=== PATIENT | female | born 1955 | race Caucasian/White ===

== ENCOUNTER → 2017-01-10 | Outpatient (CLI) | payer BC ==
[~2017-01-10] MED LIST: BUTATAB6 PO; CETI10 PO; COLA100C3 PO; CYCL1TAB29 PO; DICL1GEL7 TOPICAL; ESTR.625 PO; FOLI1TAB4 PO; FOLI400T PO; INSU100V2 SQ; LANTINJ SQ; LYRI100C PO; LYRI200C PO; MECL-62 PO; METH2.5T PO; MIRA33504 PO; NORC5TAB PO; NOVONP2 SQ; ONDA1TAB17 PO; OXYC15TA PO; OXYC20TA17 PO; PILO5TAB3 PO; RANI150T PO; SIMV20TA PO; TIZA4CAP3 PO; TRAM50TA PO; VENTAER INH; WALKER WHEELS/F1 MIS
== END ==
LOC: HORT 16:11
PROVIDERS: ATTEND Neurological Surgery
DX: M54.5 Low back pain (principal)
CPT/HCPCS: L0627

== ENCOUNTER → 2017-03-01 | Day surgery (SDC) | payer BC ==
[~2017-03-01] MED LIST changes: -CETI10 PO; -COLA100C3 PO; -FOLI1TAB4 PO; -INSU100V2 SQ; +IOHEXOL 180 MG/ML 20 ML VIAL (for RAD DIAG) EPIDURAL ONE; +LIDOCAINE HCL 1% 30 ML VIAL NERV BLOCK ONE; -LYRI100C PO; +MEPERIDINE HCL 25 MG/ML VIAL IV ONE; -MIRA33504 PO; -NORC5TAB PO; -OXYC20TA17 PO; -PILO5TAB3 PO; +PROPOFOL 200 MG/20 ML AMP IV ONE; +TRIAMCINOLONE ACETONIDE 40 MG/ML VIAL NERV BLOCK ONE
--- NOTE | 2017-03-01 12:07 | M6 ---
cc: LOC CARPENTER M.D. Corrected: 03/07/2017 DATE: 03/01/2017 1955 PROCEDURE Fluoroscopically guided left L4/5 transforaminal epidural steroid injection. History and physical was completed and signed. Consent was signed. Procedure site was marked. Medications were listed and reconciled. Pain score was recorded. Allergies were noted. Time out was taken. Fluoroscopy time was recorded where applicable. Sedation was administered or directed by Dr. Carpenter. The patient was given oxygen. The patient was monitored by a registered nurse. Total procedure time was greater than 15 minutes. An IV was started, blood pressure cuff, pulse oximeter and EKG were applied. The patient was placed in the prone position on a Mayur table, sedated with small amounts of Versed and propofol titrated to effect. Vital signs were monitored and remained stable throughout the procedure. The patient remained responsive throughout the procedure. The lumbar area was scrubbed with antimicrobial solution, prepped with 10% Betadine solution, and draped with sterile drapes. Fluoroscopy was used in both the AP and lateral projections to clearly visualize the left L4-5 neural foramen. Then separate sterile 22 gauge, 3 1/2-inch Chiba needles were advanced under fluoroscopic guidance into the dorsal-most aspect of each foramen. There was negative aspiration for blood or CSF. There were no reported paresthesias by the patient. There was no washout of 2 mL of Omnipaque. Then after waiting approximately 60 seconds, the patient was slowly given 3 mL of 1% Xylocaine and 3 mL of Omnipaque, 60 mg of Kenalog at that location. Following this, the patient was taken to the recovery room with stable vital signs, neurologically intact. W. MD KATHRIN Zavala/CHRIS /10:47 AM /11:47 AM CLAIR
== END | disposition home or self-care (01) ==
LOC: PHSDC 07:40
PROVIDERS: ATTEND Pain Medicine Interventional Pain Medicine
DX: M54.5 Low back pain (principal); M79.605 Pain in left leg
CPT/HCPCS: 64483; 99152; J2175; J3301; Q9965

== ENCOUNTER 2017-04-11 06:18 | Observation (INO) | payer BC ==
--- NOTE | 2017-04-10 17:50 | MH ---
cc: ASHA MURRAY M.D. DATE OF ADMISSION: 04/11/2017 ADMITTING DIAGNOSIS: Herniated nucleus pulposus lumbar spine. HISTORY OF PRESENT ILLNESS This is a 61-year-old female who presented to our office for evaluation severe left buttock pain radiating to the posterior lower extremity and into the bottom of her foot. She has now almost 11 months status post L3 / L4 transforaminal interbody fusion with cage and pedicle screw fixation. She states that the worst pain is the cramps that she gets in her buttocks. She has started taking Flexeril which helped some degree. She states an activity aggravates her pain such as walking or picking up 4 - 5 pounds. She states that she is sitting or laying down, this helps with the pain. PAST MEDICAL HISTORY: 1. Significant for fibromyalgia. 1. Sjogren's syndrome. 2. Left knee replacement in 2012. 3. Left ankle fracture repair in 2001. 4. Cervical fusion 2005. 5. L3 / L4 transforaminal interbody fusion with cage and pedicle screw fixation in 2015. 6. Diabetes mellitus. 7. Hyperlipidemia. CURRENT MEDICATIONS 1. She takes Zofran 8 mg p.o. p.r.n. 2. Insulin glargine 100 units subcutaneous daily. 3. Albuterol inhaler 90 mcg 2 puffs inhaled q.4 h p.r.n. wheezing, shortness of breath. 4. Ranitidine 150 mg p.o. daily p.r.n. 5. Premarin 0.625 mg p.o. daily p.r.n. 6. Methotrexate 2.5 mg p.o. q. 7 days. 7. Meclizine 25 mg p.o. p.r.n. vertigo. 8. Lyrica 200 mg p.o. b.i.d. 9. Folic acid 1 mg p.o. daily. 10. Butalbital/acetimenophen/caffiene 50/325/40 q.4 h p.r.n. headache. 11. Flexeril 10 mg p.o. q.8 h p.r.n. 12. Oxycodone 15 mg q.6 h p.r.n. pain 13. Tizanidine 4 mg p.o. q.8 h. Muscle spasms. 14. Simvastatin 20 mg p.o. q.h.s. ALLERGIES SULFA SHE ALSO STATES THAT SHE CANNOT TAKE CIPRO DUE TO ADVERSE REACTION. FAMILY HISTORY Her mother is 76 years older father is 76 year's old she has a sister who is 54 year's old she has a brother who is 46 year's old. SOCIAL HISTORY She is self-employed. She does not have any children. She does not smoke and she does not drink alcohol. REVIEW OF SYSTEMS CONSTITUTIONAL: She denies any fever or chills. EARS, NOSE, AND THROAT: No pharyngitis, exudates or bloody drainage from her nose. CARDIOVASCULAR SYSTEM: She denies any chest pain or palpitations RESPIRATORY: No cough or shortness of breath. GENITOURINARY: No dysuria hematuria. MUSCULOSKELETAL: Positive for left buttock pain and cramps her lower extremities. SKIN: No rashes or pruritus. NEUROLOGIC: No difficulty with speech or memory. GASTROINTESTINAL: No nausea, vomiting, or abdominal pain. PSYCHIATRIC: No anxiety or depression symptoms. ENDOCRINE: No polyuria, polydipsia. HEMATOLOGIC: No bruising, bleeding tendencies. PHYSICAL EXAMINATION HEAD, EYES, EARS, NOSE, AND THROAT: Head: Normocephalic, atraumatic. NECK: Supple. No carotid bruits heard on auscultation. LUNGS: Clear to auscultation bilaterally. HEART: Regular rate and rhythm, normal S1, S2. ABDOMEN: Soft, nontender. Positive bowel sounds. SKIN: Reveals no cyanosis or erythema. MUSCULOSKELETAL: She has 5/5 strength in the lower extremities. She ambulates without any assistive device. NEUROLOGIC: She is awake, alert, oriented. Cranial nerves II-XII grossly intact. His speech is fluent. Comprehension is good. She has a decreased sensation in the left lateral calf otherwise intact in lower extremities. IMPRESSION 61-year-old female with a 6-month history of left buttock pain that radiates into the posterior thigh and calf and worsens with activity. She has undergone a right L3-L4 translaminar interbody fusion about 10 months ago with complete resolution of her low back pain and right lower extremity symptoms. She had MRI of the lumbar spine from 12/07/2016 reveals a decompressed L3 / L4 level. She now has a disk protrusion at the L4, L6 and L5 level, eccentric to the left side along with facet arthropathy and associated lateral recess and foraminal stenosis. There is moderate L4-L5, L5-S1 disk degeneration. PLAN We have discussed treatment options with the patient which includes continued conservative treatment measures with pain management and physical therapy versus surgical intervention. The patient states that she is miserable with her level discomfort and she is requesting we proceed with surgical intervention. We have discussed the procedure of a left L4-L5 hemilaminotomy with microdiskectomy in detail. We have discussed the procedure as well as the risks, benefits, alternatives and recovery time. We have discussed risks involved with surgery include but not limited to bleeding, infection, muscle weakness voice hoarseness, difficulty swallowing, heart attack, stroke blood clots, scar tissue formation among others. All her questions have been answered to her satisfaction. The patient is requesting we proceed and she was therefore scheduled accordingly. Asha Murray MD DICTATED BY: BRANDON Oleary/derik /5:23 PM /5:40 PM
[~2017-04-11] VITALS: Ht 170.2 cm; Wt 82.7 kg
[~2017-04-11 06:18] MED LIST changes: +AUGM875T3 PO; +CETI10 PO; +CEVI1CAP PO; +CYCL10TA PO; -CYCL1TAB29 PO; -DICL1GEL7 TOPICAL; -ESTR.625 PO; +FOLI1TAB6 PO; -FOLI400T PO; -IOHEXOL 180 MG/ML 20 ML VIAL (for RAD DIAG) EPIDURAL ONE; -LIDOCAINE HCL 1% 30 ML VIAL NERV BLOCK ONE; -MEPERIDINE HCL 25 MG/ML VIAL IV ONE; +METO25TA3 PO; -ONDA1TAB17 PO; -PROPOFOL 200 MG/20 ML AMP IV ONE; +ROPI1TAB PO; -SIMV20TA PO; -TRAM50TA PO; -TRIAMCINOLONE ACETONIDE 40 MG/ML VIAL NERV BLOCK ONE; -WALKER WHEELS/F1 MIS
[2017-04-11] MEDS ORDERED: METOPROLOL TARTRATE 25 MG TAB PO PRN ×2 (07:00→10:30)
[2017-04-11] MEDS ORDERED: SODIUM CHLOR 0.9% 1000 ML INJ 1,000 ML IV SCH (07:00)
[2017-04-11] MEDS ORDERED: CHLORHEXIDINE GLUCONATE 2 % 1 PACK (2 CLOTHS) TOPICAL PRN (07:00)
[2017-04-11] MEDS ORDERED: POVIDONE IODINE 5% (ANTISEPSIS KIT) 4 APPLICATIONS EACH NARE PRN (07:00)
[2017-04-11] MEDS ORDERED: LACTATED RINGER'S 1000 ML IV PRN (07:00)
[2017-04-11] MEDS ORDERED: SODIUM CHLORID 0.9% 500 ML IV PRN (07:00)
[2017-04-11] MEDS ORDERED: VANCOMYCIN 1000 MG/NS 250 ML IV SCH ×2 (07:00)
[2017-04-11] MEDS ORDERED: GELFOAM SIZE 100 ONE (07:15)
[2017-04-11] MEDS ORDERED: VANCOMYCIN HCL 1000 MG VIAL ONE (07:15)
[2017-04-11] MEDS ORDERED: BUPIVACAINE/EPINEPHRINE 0.5% PF 30 ML VIAL ONE (07:15)
[2017-04-11] MEDS ORDERED: methylPREDNISolone ACETATE 40 MG/ML VIAL ONE (07:15)
[2017-04-11] MEDS ORDERED: THROMBIN (TOPICAL) 5,000 UNIT VIAL ONE (07:15)
[2017-04-11] MEDS ORDERED: ARTIFICIAL TEARS OPTH OINT 3.5 APPLIC/3.5 GM TUBO ONE (07:49)
[2017-04-11] MEDS ORDERED: ACETAMINOPHEN 1000 MG/100 ML 100 ML IV ONE (07:49)
[2017-04-11] MEDS ORDERED: APREPITANT 40 MG CAP ONE (07:55)
[2017-04-11] MEDS ORDERED: MIDAZOLAM HCL 2 MG/2 ML VIAL ONE (07:55)
--- NOTE | 2017-04-11 08:58 | EKG ---
Date Performed: 04/11/2017 Time Performed: 07:44:45 PTAGE: 61 years EKG: Sinus rhythm NORMAL ECG PREVIOUS TRACING : 12/10/2013 06.41 DOCTOR: Ish Melchor Interpretating Date/Time 04/11/2017 08:56:47
[2017-04-11] MEDS ORDERED: ACETAMIN 325 MG/BUTALBITAL 50 MG/CAFFEINE 40 MG TAB PO PRN (10:30)
[2017-04-11] MEDS ORDERED: CYCLOBENZAPRINE HCL 10 MG TAB PO PRN (10:30)
[2017-04-11] MEDS ORDERED: MECLIZINE HCL 25 MG TAB PO PRN (10:30)
[2017-04-11] MEDS ORDERED: ALBUTEROL SULFATE 90 MCG/ACT HFA 8 GM INHALER INH PRN (10:30)
[2017-04-11] MEDS ORDERED: SODIUM CHLORIDE 0.9% FLUSH 10 ML FLUSH IV FLUSH PRN (10:45)
[2017-04-11] MEDS ORDERED: cloNIDine HCL 0.1 MG TAB PO PRN (10:45)
[2017-04-11] MEDS ORDERED: PROMETHAZINE INJ 25 MG/ML VIAL IM PRN (10:45)
[2017-04-11] MEDS ORDERED: GLUCAGON 1 MG/ML VIAL OTHER PRN (10:45)
[2017-04-11] MEDS ORDERED: MAGNESIUM HYDROXIDE SUSP 30 ML CUP PO PRN (10:45)
[2017-04-11] MEDS ORDERED: DEXTROSE 50% IN WATER 50 ML VIAL(D50) IV PUSH PRN (10:45)
[2017-04-11] MEDS ORDERED: ZOLPIDEM TARTRATE 5 MG TAB PO PRN (10:45)
[2017-04-11] MEDS ORDERED: ALUMINUM/MAGNESIUM/SIMETH 30 ML CUP PO PRN (10:45)
[2017-04-11] MEDS ORDERED: ACETAMINOPHEN 325 MG TAB PO PRN (10:45)
[2017-04-11] MEDS ORDERED: RESP: ALBUTEROL 2.5 MG/3 ML NEB (PRN) NEB (10:45)
[2017-04-11] MEDS ORDERED: ONDANSETRON HCL 4 MG/2 ML VIAL IV PUSH PRN (10:45)
[2017-04-11] MEDS ORDERED: MENTHOL LOZENGE BUCCAL PRN (10:45)
[2017-04-11] MEDS ORDERED: *MEPERIDINE 25 MG INJ VIAL PERIprocedural Use ONLY ONE (10:46)
[2017-04-11] MEDS ORDERED: OXYC15TA PO (11:10)
[2017-04-11] MEDS ORDERED: *morphine SULFATE 8 MG/ML PERIprocedure ONLY ONE ×2 (11:10→11:32)
[2017-04-11] MEDS: NS + KCL 20 MEQ INJ 1,000 ML IV SCH ×2 (11:22→12:00)
[2017-04-11] MEDS ORDERED: SODIUM CHLORIDE 0.9% INJ 100 ML ONE (11:24)
[2017-04-11] MEDS ORDERED: ceFAZolin INJ 1,000 MG VIAL ONE (11:24)
[2017-04-11] MEDS ORDERED: DEXAMETHASONE SOD PHOS 4 MG/ML VIAL IV ONE (12:00)
[2017-04-11] MEDS ORDERED: ROCURONIUM INJ 50 MG/5 ML SYRINGE IV PUSH ONE (12:00)
[2017-04-11] MEDS ORDERED: ONDANSETRON HCL 4 MG/2 ML VIAL IV ONE (12:00)
[2017-04-11] MEDS ORDERED: NEOSTIGMINE 3 MG/3 ML SYR IV ONE (12:00)
[2017-04-11] MEDS ORDERED: ePHEDrine/NS 25 MG/5 ML SYR IV ONE (12:00)
[2017-04-11] MEDS ORDERED: MIDAZOLAM HCL 2 MG/2 ML VIAL IV ONE (12:00)
[2017-04-11] MEDS ORDERED: NORMOSOL R INJ 1,000 ML IV ONE (12:00)
[2017-04-11] MEDS ORDERED: PHENYLEPH/NS 1000 MCG/10 ML SYR IV ONE (12:00)
[2017-04-11] MEDS ORDERED: GLYCOPYRROLATE 1 MG/5 ML SYRINGE IV PUSH ONE (12:00)
[2017-04-11] MEDS ORDERED: PROPOFOL 200 MG/20 ML AMP IV ONE (12:00)
[2017-04-11] MEDS ORDERED: LIDOCAINE HCL 1% PF 5 ML SYRINGE OTHER ONE (12:00)
[2017-04-11] MEDS ORDERED: DO NOT ADM ANY ANTICOAGULANT DRUGS PRN (13:15)
--- NOTE | 2017-04-11 13:21 | PD.OP ---
cc: Christal Young MD Operative Report Date of Surgery: Apr 11, 2017 Preoperative Diagnosis: Lumbar L4-5 herniated disc with facet arthropathy and spinal/foraminal stenosis ; Low back pain with left L4 and L5 radiculopathy Postoperative Diagnosis: Same Procedure: Left L4-5 hemilaminotomy with medial facetectomy, foraminotomy and microdiscectomy; microsurgical technique Anesthesia: Gen. endotracheal by Isael de jesus Surgeon: Manuel Gomez M.D. Electronics Engineer(s): Karley Patiño Operation and Findings: Following administration of general endotracheal anesthesia, patient received vancomycin 1 g intravenously. Sequential compression devices were placed for DVT prophylaxis. She was then turned in prone position on Will frame and the Mayur table and all pressure points adequately padded. The lumbar region was then shaved and prepped with a Betadine and ChloraPrep. Sterile draping undertaken with Ioban. Midline incision overlying the L4-5 level was then made after infiltrating the skin with 0.5% Marcaine with epinephrine solution. The skin incision was made extending down through the fascia and then using the subperiosteal plane on the right side the muscular attachments to the spinous process and lamina were detached. Intraoperative fluoroscopy was used for level confirmation and further dissection undertaken using microtechnique with microscope magnification. The inferior portion of the L4 and portion of the L5 lamina was then drilled out and the underlying ligamentum flavum also removed. There was some facet arthropathy noted in the medial portion of facet was also resected and the lateral recess decompressed. Epidural venous stasis which he with the bipolar cautery along with Gelfoam and thrombin and bone wax used at the laminotomy edges for hemostasis. The thecal sac was then gently retracted with a nerve root retractor and an extruded disc fragment was identified which was inferiorly migrated. Fragments were removed with pituitary forceps and the nerve root impingement along with thecal sac compression decompressed. The left L4-5 foramen was also decompressed. Small area of CSF leak was noted more ventral lateral aspect where the disc was adherent to the dura and this could not be primarily repaired given the difficult location and exposure. Compressed Gelfoam layered with the DuraSeal was placed overlying this and with Valsalva maneuvers no CSF leak was noted. The area was then copiously irrigated. The retractors removed and the muscle fascia proximal using 2-0 Vicryl interrupted stitches. 3-0 Vicryl subcuticular stitches were also placed in an interrupted fashion and planned skin closure was with Mastisol and Steri- Strips. A sterile dressing was then applied and the patient then turned in the supine position and extubated and taken to recovery room in stable condition. There were no intraoperative complications and all sponge and needle count was correct at the end of the procedure. Estimated blood loss about 30 cc. Manuel Gomez MD Apr 11, 2017 13:21
--- NOTE | 2017-04-11 13:58 | RADRPT ---
EXAM DATE/TIME: 04/11/2017 08:57 [facility] COMPARISON: No previous studies available for comparison. INDICATIONS : L5-S1 lumbar spine laminectomy. Existing fusion hardware present. OR. MEDICAL HISTORY : None. SURGICAL HISTORY : Fusion, lumbar. ENCOUNTER: Subsequent ACUITY: 1 day PAIN SCORE: Non-responsive. LOCATION: Lumbar L5-S1 FINDINGS: A single lateral view of the lumbar spine was performed. The patient's had previous fusion at L3-4. T he radiopaque marker is identifying the posterior elements of L5. CONCLUSION: L5 is being localized. Ish Costello MD on April 11, 2017 at 13:56 Board Certified Radiologist. This report was verified electronically.
[2017-04-11] MEDS ORDERED: FAMOTIDINE 20 MG TAB PO PRN (14:00)
[2017-04-11] MEDS ORDERED: PREGABALIN 100 MG CAP PO SCH (14:00)
[2017-04-11] MEDS: INSULIN NovoLIN REGULAR SUPPLEMENTAL SCALE SQ SCH ×3 (14:00→21:32)
[2017-04-11] MEDS: MORPHINE SULFATE 4 MG/ML INJ IV PUSH PRN (14:20)
[2017-04-11] MEDS ORDERED: [UNRECOGNIZED DRUG - OTHER] PO SCH (15:00)
[2017-04-11] MEDS ORDERED: CEVIMELINE PO SCH (15:00)
[2017-04-11] MEDS: PREGABALIN 100 MG CAP PO SCH ×2 (16:14→21:25)
[2017-04-11 19:22] VITALS: BP 135/92; PULSE 74; RESP 18; TEMP 98.3; O2SAT 97
[2017-04-11] MEDS: SODIUM CHLORIDE 0.9% FLUSH 10 ML FLUSH IV FLUSH SCH (21:00)
[2017-04-11] MEDS: DOCUSATE SODIUM 100 MG CAP PO SCH (21:25)
[2017-04-11 22:45] VITALS: BP 118/58; PULSE 82; RESP 18; TEMP 98.1; O2SAT 95
[2017-04-12 00:30] VITALS: BP 105/52; PULSE 72; RESP 17; TEMP 98.2; O2SAT 96
[2017-04-12] MEDS: MORPHINE SULFATE 4 MG/ML INJ IV PUSH PRN (03:20)
[2017-04-12] MEDS: PREGABALIN 100 MG CAP PO SCH (05:30)
[2017-04-12 05:44] VITALS: BP 110/58; PULSE 79; RESP 17; TEMP 98.2; O2SAT 98
[2017-04-12] MEDS: NS + KCL 20 MEQ INJ 1,000 ML IV SCH (07:27)
[2017-04-12] MEDS: INSULIN NovoLIN REGULAR SUPPLEMENTAL SCALE SQ SCH (08:00)
[2017-04-12 08:02] VITALS: BP 116/58; PULSE 68; RESP 20; TEMP 98.1; O2SAT 94
[2017-04-12] MEDS ORDERED: FOLIC ACID 1 MG TAB PO SCH (09:00)
[2017-04-12] MEDS ORDERED: CETIRIZINE HCL 10 MG TAB PO SCH (09:00)
[2017-04-12] MEDS: SODIUM CHLORIDE 0.9% FLUSH 10 ML FLUSH IV FLUSH SCH (09:00)
[2017-04-12] MEDS: DOCUSATE SODIUM 100 MG CAP PO SCH (09:12)
[2017-04-12 10:29] VITALS: RESP 16
[2017-04-17] MEDS ORDERED: METHOTREXATE 2.5 MG TAB PO SCH (09:00)
== END 2017-04-12 12:30 | disposition home or self-care (01) ==
LOC: HSDC 06:18 → N05B 15:06
PROVIDERS: ADMIT Neurological Surgery; ATTEND Neurological Surgery
DX: M51.26 Other intervertebral disc displacement, lumbar region (principal); M51.16 Intervertebral disc disorders with radiculopathy, lumbar region; M51.17 Intervertebral disc disorders with radiculopathy, lumbosacral region; M79.7 Fibromyalgia; M35.00 Sjogren syndrome, unspecified; I87.8 Other specified disorders of veins; G96.0 Cerebrospinal fluid leak; E78.5 Hyperlipidemia, unspecified; E11.9 Type 2 diabetes mellitus without complications; Z79.899 Other long term (current) drug therapy; Z96.652 Presence of left artificial knee joint; Z98.1 Arthrodesis status
CPT/HCPCS: 00630; 63030; 72020; 76000; 82948; 86850; 86900; 86901; 93005; 94150; 96361; 96365; 96366; 96375; 96376; G0378; J0131; J0690; J1030; J2175; J2250; J2270; J3370; J3480; J7120; J8501; J1100; J2370; J2405; J2710; J3010